=== PATIENT | female | born 1975 | race Caucasian/White ===

== ENCOUNTER 2018-08-24 21:55 | Emergency (ER) | payer OTHER ==
[~2018-08-24] VITALS: Ht 157.4 cm; Wt 49.9 kg
--- NOTE | ~2018-08-24 | EKG ---
[place], [place] ELECTROCARDIOGRAM REPORT NAME: Kaila Whitt UNIT #: [id number] ROOM: DOCTOR: EPIPHANY DRAFT REPORT BIRTHDATE: [birth year] [facility] Test Date: 2018-08-25 Test Time: 00:14:06 Pat Name: Kaila Whitt Department: Room: Gender: F [place]: : 1975 Requested By: ÁNGEL DE SOUZA PA-C Order Number: [id number] Reading MD: Naga Boo MD Measurements Intervals [place] Rate: 73 P: 71 KS: 146 QRS: 75 QRSD: 81 T: 71 QT: 418 QTc: 461 Interpretive Statements Sinus rhythm Baseline wander in lead(s) V4,V5 No previous ECG available for comparison Electronically Signed On 08-25-2018 19:25:13 PST by Naga Boo MD CM:EKGRPT:ELECTROCARDIOGRAM REPORT [id number] 24 ÁNGEL DE SOUZA PA-C EPIPHANY DRAFT REPORT ÁNGEL DE SOUZA PA-C
[2018-08-24 23:09] LABS: BASO % 0.3 % (0.0-1.0); EOS % 0.2 % (1.0-4.0); HEMATOCRIT 39.4 % (37.0-47.0); HEMOGLOBIN 13.5 g/dl (12.0-16.0); LYMPH # 2.8 10*3/uL (1.3-4.4); LYMPH % 24.7 % (27.0-41.0); MEAN CELL VOLUME 85.7 fl (81.0-99.0); MEAN CORPUSCULAR HGB 29.3 pg (27.0-31.0); MEAN CORPUSCULAR HGB CONC 34.3 g/dl (33.0-37.0); MEAN PLATELET VOLUME 8.9 fl (9.6-12.3); MONO # 0.6 10*3/uL (0.1-1.0); MONO % 5.4 % (3.0-9.0); NEUT % 69.1 % (47.0-73.0); PLATELET COUNT AUTOMATED 261 10*3/uL (130-400); RED CELL DISTRI WIDTH 12.6 % (0-14.5); WHITE BLOOD COUNT 11.5 10*3/uL (4.8-10.8)
[2018-08-24 23:25] LABS: ALBUMIN 3.5 gm/dl (3.1-4.5); ALKALINE PHOSPHATASE 61 U/L (45-117); BUN 8 mg/dl (7-24); CHLORIDE 107 mmol/L (98-107); CREATININE 0.84 mg/dL (0.55-1.02); POTASSIUM 3.1 mmol/L (3.5-5.1); SGOT/AST 15 IU/L (3-35); SGPT/ALT 15 U/L (12-78); SODIUM 141 mmol/L (136-145); TOTAL PROTEIN 6.7 gm/dL (6.4-8.2)
[2018-08-24 23:28] LABS: ACETAMINOPHEN (TYLENOL) < 5.0 ug/ml (10-30); ETHYL ALCOHOL < 3.0 mg/dl (<3)
[2018-08-25 07:01] LABS: BILIRUBIN NEGATIVE (NEGATIVE); BLOOD NEGATIVE (NEGATIVE); CLARITY SL CLOUDY (CLEAR); COLOR YELLOW (YELLOW); GLUCOSE NEGATIVE (NEGATIVE); KETONE NEGATIVE (NEGATIVE); LEUKO ESTERASE NEGATIVE (NEGATIVE); NITRITE NEGATIVE (NEGATIVE); SPECIFIC GRAVITY <= 1.005 (1.005-1.030); UROBILINOGEN 0.2 E.U./dl (0.2-1.0)
[2018-08-25 07:13] LABS: URINE BARBITURATES < 200 (200ng/ml); URINE METHADONE < 300 (300ng/ml)
[2018-08-25 07:29] LABS: BACTERIA TRACE; MUCOUS 1+
[2018-08-25 07:32] LABS: URINE AMPHETAMINES < 1000 (1000ng/ml); URINE BENZODIAZEPINES < 200 (200ng/ml); URINE CANNABINOIDS (THC) > 50 (50ng/ml); URINE COCAINE < 300 (300ng/ml); URINE OPIATES < 300 (300ng/ml)
[2018-08-25 07:46] LABS: URINE PHENCYCLIDINE < 25 (25ng/ml)
== END 2018-08-25 17:38 | disposition home health service (06) ==
LOC: ED 21:55
PROVIDERS: Physician Assistant
DX: F22 Delusional disorders (principal); R51 Headache